=== PATIENT | female | born 1975 | race Caucasian/White ===

== ENCOUNTER 2018-09-14 10:43 | Emergency (ER) | payer OTHER ==
[~2018-09-14] VITALS: Ht 154.9 cm; Wt 49.0 kg
[2018-09-14 10:49] VITALS: Ht 154.9 cm; Wt 49.0 kg
[2018-09-14 14:11] VITALS: BP 143/82
== END 2018-09-14 14:11 | disposition home or self-care (01) ==
LOC: ED
DX: S83.92XA Sprain of unspecified site of left knee, initial encounter (principal); W18.30XA Fall on same level, unspecified, initial encounter; Y93.89 Activity, other specified; Y92.89 Other specified places as the place of occurrence of the external cause; Y99.8 Other external cause status
CPT/HCPCS: J1885